=== PATIENT | male | born 1980 | race Caucasian/White ===

== ENCOUNTER 2022-11-13 14:41 | Outpatient (CLI) | payer OTHER ==
[2022-11-13 16:06] VITALS: BP 128/64
--- NOTE | 2022-11-13 16:06 | SLEEP CARE CONSULTATION ---
Information from patient questionnaire entered by Luly Linares. I have reviewed and concur with the information entered by Luly Linares. This document represents the service I personally performed and the decisions made by me, Supriya Huerta ARNP. History of Present Illness Service Date and Time: 11/13/2022 1441 Reason for Visit: New patient, sleep apnea on CPAP therapy Chief Complaint: reports: Excessive daytime sleepiness Date of Onset: 2yrs Usual bedtime: 5am Time it takes to fall asleep: 10min Snores at night: No Sleeps alone due to snoring: No Number of times waking at night: 3 Reasons for waking at night: reports: Bathroom, Other (noise) Toss, Turn, or Twitch while sleeping: No Recalls having dreams: Yes Usually gets out of bed at: 1pm Feels refreshed in the morning: No Morning headache: Yes (resolves an hr or so after waking ) Sleepy or fatigued during the day: Yes Ever fallen asleep while driving: Yes Takes day naps: Yes Dreams during day naps: Yes Prior sleep studies: Yes Year and Where: [facility] 03/10/22-04/02/22 Additional HPI information: LIT BARBOZA was previously diagnosed to have unknown, AHI unknown, sleep apnea-hypopnea syndrome and comes in today to establish care for CPAP therapy. - Parasomnia Symptoms Ever been unable to move upon waking from sleep: No Walks in sleep: No Talks in sleep: No Ever acted out dreams in sleep: No Ever felt weak in the knees when startled or emotional: No Bothered by creepy, crawly, restless sensations in legs: No Problems with memory or concentration: Yes CPAP Compliance Data - Data Reviewed with Patient Average duration of nightly device use: 5 hours 54 minutes Compliance rate %: 91 (82/90 days used) Current pressure setting (cmH2O): 14-20 (avg 90% 15.6) Average residual AHI: 2.5 Compliance data discussion: He is using a [employer] Dreamstation 2 that he got from his when she upgraded to a BiPAP. He is using a full face mask. He has been getting his supplies from [facility]. Subjective Patient concerns: reports: mask leak noise, dry mouth, nose, throat (occasionally). denies: aerophagia, mask discomfort, air blowing in eyes, condensation in mask/hose, nasal congestion, epistaxis Observed to snore while using device: No Current pressure setting perceived as: comfortable On therapy, patient: reports: sleeping better, drowsiness while driving (when coming home for work, 9pm to 5am shift at work) Initial [place] Sleepiness Scale score: 18 (11/13/22) Past Medical History Past Medical History: reports: Diabetes, GERD Social History The patient's occupation is a [id number]. Patient is and lives in . Have you smoked in the past 12 months: No Alcohol use: Yes Alcohol amount and frequency: 1-2 drinks once a month Caffeine use: Yes Caffeine amount and frequency: 2 cups daily Family History Family history of sleep disordered breathing: No Allergies and Home Medications Known drug allergies: No Drug allergies reviewed: Yes (NKDA) Home medication list reviewed: Yes (as listed in EMR) Review of Systems Weight gain over past 5 years: 50 Cardiovascular: denies: high blood pressure Gastrointestinal: reports: heartburn Neurological: reports: headaches Psychiatric: reports: anxiety, depression Ear/Nose/Throat: denies: tonsillectomy Endocrine: denies: thyroid disease Musculoskeletal: reports: joint pain, neck pain, back pain, joint swelling, muscle pain or cramping Immunologic: reports: itching Physical Exam Vital signs obtained and entered by: LULY Calvin MA Blood Pressure: 128/64 (left arm) Cuff size: regular Heart Rate: 98 O2 Saturation: 97 Height: 5 ft 5 in Weight: 232 lb 6.4 oz Body Mass Index: 38.7 BMI Classification: Obese Neck circumference: 18.25 Impression and Plan 1. Obstructive Sleep Apnea-Hypopnea Syndrome, unknown, with good treatment compliance and good apnea control. Patient feels he may need a different machine, his has a bipap. He continues to have excessive daytime sleepiness despite using his CPAP regularly. He has been prescribed modafinil by his primary provider but feels it is not doing enough to curb his sleepiness. I was able to obtain his therapy report and he is getting significant improvement of his sleep apnea with an AHI of 2.5 at pressure setting 14-20 cmH2O and 90% average pressure at 15.6 cmH2O. I will send an updated prescription for supplies to his DME, [facility], once I have a copy of his sleep study from [facility]. I will have him follow up with our medical reception specialist to evaluate if he needs a further study or change in medication to reduce daytime sleepiness. He voiced agreement with plan. Patient's apnea severity and rationale for treatment to reduce apnea, improve sleep quality and reduce cardiovascular and cerebrovascular events was reviewed. I also reviewed the benefit of consistent device use of CPAP for diabetes and gastric reflux. 2. Excessive daytime sleepiness. Patient has [place] 18/24 while on CPAP with AHI of 2.5 for last 90 days. He is on modafinil 250 mg daily as prescribed by his PCP. * Continue auto CPAP pressure at 14-20 cmH2O * Obtain last sleep study * Update supplies once sleep study is obtained, if not a sleep study will be ordered * Notify me if snoring with mask or feeling that the pressure is too much or too little * Attempt to lose weight * Call this office if any problems using CPAP * Return for follow up with 1 month, or sooner if concerns arise Counseling Topics: Weight loss health impact Visit Type: In Office Time Spent with Patient (minutes): 40 Provider Statement: I spent 100% of the Face to Face Visit with the patient with greater than 50% spent counseling the patient and coordination of care.
== END 2022-11-13 14:42 | disposition home or self-care (01) ==
LOC: SC 14:41
PROVIDERS: ATTEND Nurse Practitioner Family
DX: G47.33 Obstructive sleep apnea (adult) (pediatric) (principal); G47.10 Hypersomnia, unspecified; E66.9 Obesity, unspecified; Z68.38 Body mass index [BMI] 38.0-38.9, adult; Z79.899 Other long term (current) drug therapy
CPT/HCPCS: 99203; 99212

== ENCOUNTER 2022-12-30 13:27 | Outpatient (CLI) | payer OTHER ==
[2022-12-31 08:20] VITALS: BP 130/72
--- NOTE | 2022-12-31 08:20 | SLEEP CARE CONSULTATION ---
Information from patient questionnaire entered by Ann Marie Linares. I have reviewed and concur with the information entered by Ann Marie Linares. This document represents the service I personally performed and the decisions made by me, Yemi Valle MD, [facility]. History of Present Illness Service Date and Time: 12/30/2022 1327 Reason for follow up: other (2 MONTH F/U ) Prior sleep studies: Yes Year and Where: [facility] 03/10/22-04/02/22 HPI additional information: Mr. Thomas was diagnosed to have very severe obstructive sleep apnea-hypopnea syndrome (AHI was 62.7 and ari oxygen saturation, 49%) at [facility] in [place] on 03/19/2022 and returned today for follow up of CPAP therapy. He said he quit using his CPAP in October because despite the pressure increase from 14 16 to 14 20 cmH2O, it did not make him sleep any better. His machine is actually his wifes replacement RespirChefStation 2 (his uses a ResMed VPAP). The patient gets his supplies from [employer].. He was fitted with a full face mask. He takes armodafinil 250 mg for excessive daytime sleepiness because he has to drive to work at the [employer]. Sleep Study - Results Prior sleep studies: Yes Year and Where: [facility] 03/10/22-04/02/22 Subjective Initial [place] Sleepiness Scale score: 18 (11/13/22) Current [place] Sleepiness Scale score: 17 (12/30/22) Allergies and Home Medications Drug allergies reviewed: Yes Home medication list reviewed: Yes Allergy and home medication list: Allergies No Known Drug Allergies Allergy (Verified 11/13/22 15:21) Review of Systems Review of systems same as previous: Yes Physical Exam Vital signs obtained and entered by: ANN MARIE Calvin MA Blood Pressure: 130/72 (LEFT ARM) Cuff size: regular Heart Rate: 90 O2 Saturation: 97 Height: 5 ft 5 in Weight: 227 lb 9.6 oz Body Mass Index: 37.8 BMI Classification: Obese Impression and Plan IMPRESSION: 1. Obstructive Sleep Apnea-Hypopnea Syndrome, very severe, with the patient not using his CPAP because he did not feel any better. I is unclear how effective the treatment is because we do not have any download. We cannot see his wifes machine through [employer] website. He was instructed to bring in the machine later this week or next week. If he would like it to be turned up, I would set it at 18 20 cmH2O. If he requires higher, he will have to be switched to a BiPAP. PLAN: 1. Bring the Respironics DreamStation 2 machine in for download and pressure change. 2. Restart CPAP. 3. Try to lose weight. 4. Return for a follow up in one month. Adjust device pressure to (cmH2O): 18-20 Follow up with Sleep Care in: 1-2 months Visit Type: In Office Time Spent with Patient (minutes): 15 Provider Statement: I spent 100% of the Face to Face Visit with the patient with greater than 50% spent counseling the patient and coordination of care.
== END 2022-12-30 13:28 | disposition home or self-care (01) ==
LOC: SC 13:27
PROVIDERS: ATTEND Internal Medicine Pulmonary Disease
DX: G47.33 Obstructive sleep apnea (adult) (pediatric) (principal); E66.9 Obesity, unspecified; Z68.37 Body mass index [BMI] 37.0-37.9, adult
CPT/HCPCS: 99212

== ENCOUNTER 2023-01-27 13:39 | Outpatient (CLI) | payer OTHER ==
--- NOTE | 2023-01-27 22:05 | SLEEP CARE CONSULTATION ---
Information from patient questionnaire entered by Ann Marie Linares. I have reviewed and concur with the information entered by Ann Marie Linares. This document represents the service I personally performed and the decisions made by me, Yemi Valle MD, [facility]. History of Present Illness Service Date and Time: 01/27/2023 1339 Reason for follow up: one month (F/U) Equipment type: CPAP (MACHINE AND OR SD CARD NEEDED) Prior sleep studies: Yes Year and Where: [facility] 03/10/22-04/02/22 HPI additional information: Mr. Thomas was diagnosed to have very severe obstructive sleep apnea-hypopnea syndrome (AHI was 62.7 and ari oxygen saturation, 49%) at [facility] in [place] on 03/19/2022 and returned today for follow up of CPAP therapy. He restarted using his wifes CPAP a month ago and raised the pressure to 16.5 20 cmH2O. The [employer] Respironics DreamStation 2 came from [facility]. He wears a full face mask. He takes armodafinil 250 mg for excessive daytime sleepiness because he has to drive to work at the [employer]. The device shows usage in 18 out of the past 30 nights, averaging 2.8 hours a night (4.7 hour average for the 18 nights with usage). The residual AHI is 1.3. His mask fit is 100%. Sleep Study - Results Prior sleep studies: Yes Year and Where: [facility] 03/10/22-04/02/22 Subjective Initial [place] Sleepiness Scale score: 18 (11/13/22) Allergies and Home Medications Drug allergies reviewed: Yes Home medication list reviewed: Yes Allergy and home medication list: Allergies No Known Drug Allergies Allergy (Verified 01/24/23 11:56) Review of Systems Review of systems same as previous: Yes Physical Exam Vital signs obtained and entered by: ANN MARIE Calvin MA Height: 5 ft 5 in Impression and Plan IMPRESSION: 1. Obstructive Sleep Apnea-Hypopnea Syndrome, very severe, with the patient back using his wifes CPAP regularly (his has a BiPAP+ oxygen). The current pressure setting appears effective and comfortable. The persistent fatigue, most likely, is due to insufficient sleep given the average of only 4.7 hours a night of CPAP usage. Because his obstructive sleep apnea-hypopnea is severe, I recommend he use it regularly and allow himself more time for sleeping. 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 PLAN: 1. Continue with autoCPAP set at the current pressure range. 2. Try to lose weight. 3. Try ResMed N30 and F30 masks. 4. Return for follow up in a year or earlier if there is any problem. Counseling Topics: Weight control Follow up with Sleep Care in: 1 year Visit Type: In Office Time Spent with Patient (minutes): 15 Provider Statement: I spent 100% of the Face to Face Visit with the patient with greater than 50% spent counseling the patient and coordination of care.
== END 2023-01-27 13:40 | disposition home or self-care (01) ==
LOC: SC 13:39
PROVIDERS: ATTEND Internal Medicine Pulmonary Disease
DX: G47.33 Obstructive sleep apnea (adult) (pediatric) (principal)
CPT/HCPCS: 99212

== ENCOUNTER 2024-02-09 13:11 | Outpatient (CLI) | payer OTHER ==
--- NOTE | 2024-02-09 14:25 | SLEEP CARE CONSULTATION ---
Information from patient questionnaire entered by Luly Linares. I have reviewed and concur with the information entered by Luly Linares. This document represents the service I personally performed and the decisions made by me, Yemi Valle MD, [facility]. History of Present Illness Service Date and Time: 02/09/2024 1311 Reason for follow up: annual (LAST SEEN 01/2023) Equipment type: CPAP (MACHINE AND OR SD CARD NEEDED) Prior sleep studies: Yes Year and Where: [facility] 03/10/22-04/02/22 HPI additional information: Mr. Holliday was diagnosed to have very severe obstructive sleep apnea-hypopnea syndrome (AHI was 62.7 and ari oxygen saturation, 49%) at in [place] on 03/19/2022 and returned today for follow up of CPAP therapy. He continues to use his wifes [employer] Respironics DreamStation 2 set at 18 - 20 cmH 2O. He wears a full face mask. He takes armodafinil 250 mg for excessive daytime sleepiness because he has to drive to work at the [employer]. The device shows usage in 114 out of the past 120 nights, averaging 6.4 hours a night. The residual AHI is 1.7. His mask fit is 100%. Average time in large leak per day is 0 seconds. Sleep Study - Results Prior sleep studies: Yes Year and Where: [facility] 03/10/22-04/02/22 Subjective Initial [place] Sleepiness Scale score: 18 (11/13/22) Current [place] Sleepiness Scale score: 5 (02/09/24) Allergies and Home Medications Drug allergies reviewed: Yes Home medication list reviewed: Yes Allergy and home medication list: Allergies No Known Drug Allergies Allergy (Verified 02/05/24 10:15) Review of Systems Review of systems same as previous: Yes (NO CHANGE) Physical Exam Vital signs obtained and entered by: LULY Calvin MA Blood Pressure: 134/85 (LEFT ARM) Cuff size: long Heart Rate: 79 O2 Saturation: 98 Height: 5 ft 5 in Weight: 254 lb 9.6 oz Body Mass Index: 42.3 BMI Classification: Morbidly Obese Impression and Plan IMPRESSION: 1. Obstructive Sleep Apnea-Hypopnea Syndrome, very severe, with the patient back using his wifes CPAP regularly (his has a BiPAP+ oxygen). The current pressure setting appears effective and comfortable. He now uses the CPAP a lot more and reports less daytime sleepiness. Because the residual AHI is low, I will lower the pressure a little. PLAN: 1. Lower autoCPAP to 14 18 cmH2O. The patient will make the change himself. 2. Try to lose weight. 3. Return for follow up in a year or earlier if there is any problem. Adjust device pressure to (cmH2O): 14-18 Counseling Topics: Weight control Follow up with Sleep Care in: 1 year Visit Type: In Office Time Spent with Patient (minutes): 15 Provider Statement: I spent 100% of the Face to Face Visit with the patient with greater than 50% spent counseling the patient and coordination of care.
[2024-02-09 14:36] VITALS: BP 134/85; O2SAT 98
== END 2024-02-09 13:12 | disposition home or self-care (01) ==
LOC: SC 13:11
PROVIDERS: ATTEND Internal Medicine Pulmonary Disease
DX: G47.33 Obstructive sleep apnea (adult) (pediatric) (principal); E66.01 Morbid (severe) obesity due to excess calories; Z68.41 Body mass index [BMI] 40.0-44.9, adult
CPT/HCPCS: 99212